=== PATIENT | female | born 1975 | race Caucasian/White ===

== ENCOUNTER → 2017-09-24 | Outpatient (CLI) | payer SELFPAY ==
[~2017-09-24] MED LIST: AMOX500 PO; CODACE30 PO; VENL75ER PO
== END | disposition home or self-care (01) ==
LOC: LAB 16:39 → LAB SHORT 16:39
DX: N39.0 Urinary tract infection, site not specified (principal)
CPT/HCPCS: 87077; 87086; 87186

== ENCOUNTER → 2017-12-11 | Outpatient (CLI) | payer OTHER | END | disposition home or self-care (01) | LOC: LAB SHORT 16:07 → LAB 16:07 | DX: R10.2 Pelvic and perineal pain (principal) | CPT/HCPCS: 87077; 87086; 87186 ==

== ENCOUNTER → 2018-09-11 | Outpatient (CLI) | payer OTHER | LOC: LAB SHORT 15:43 → LAB 15:43 | DX: N39.0 Urinary tract infection, site not specified (principal) | CPT/HCPCS: 87077; 87086; 87186 ==

== ENCOUNTER → 2019-08-10 | Outpatient (CLI) | payer BC | LOC: LAB 13:47 → LAB SHORT 13:47 | DX: R30.0 Dysuria (principal) | CPT/HCPCS: 87086 ==